=== PATIENT | female | born 1965 | race Caucasian/White ===

== ENCOUNTER 2018-01-15 09:15 | Day surgery (SDC) | payer OTHER ==
[2018-01-11 12:04] VITALS: BMI 56.3
[2018-01-15] MEDS ORDERED: ONDANSETRON 4 MG/2 ML VIAL ONE ×2 (10:43→10:57)
[2018-01-15] MEDS ORDERED: KETOROLAC TROMETHAMINE 30 MG/1 ML VIAL ONE (10:43)
[2018-01-15] MEDS ORDERED: ceFAZolin SODIUM 1 GM VIAL ONE (10:43)
[2018-01-15] MEDS ORDERED: PROPOFOL 20 ML ONE ×2 (10:45)
[2018-01-15] MEDS ORDERED: DEXAMETHASONE SOD PHOSPHATE 4 MG/1 ML VIAL ONE (10:49)
[2018-01-15] MEDS ORDERED: MIDAZOLAM HCL 2 MG/2 ML SINGLE DOSE VIAL ONE ×2 (10:49)
[2018-01-15] MEDS ORDERED: SEVOFLURANE 250 ML BTL ONE (10:53)
[2018-01-15] MEDS ORDERED: BUPIVACAINE HCL/PF 2.5 MG/ML - 30 ML VIAL IJ ONE (11:07)
[2018-01-15] MEDS ORDERED: ONDANSETRON 4 MG/2 ML VIAL IVPUSH PRN (12:35)
[2018-01-15] MEDS ORDERED: oxyCODONE HCL 5 MG TABLET PO PRN (12:35)
--- NOTE | 2018-01-15 13:35 | OP ---
DATE OF OPERATION: 01/15/2018 LOCATION: [facility]. PREOPERATIVE DIAGNOSES: 1. Left knee medial lateral meniscal tear. 2. Left knee cartilage injury. 3. Left knee synovitis. POSTOPERATIVE DIAGNOSES: 1. Left knee medial lateral meniscal tear. 2. Left knee cartilage injury. 3. Left knee synovitis. PROCEDURE: 1. Left knee arthroscopy, partial meniscectomy, medial lateral meniscus. CPT code 64981. 2. Left knee arthroscopy with chondroplasty and vasoplasty. CPT code 34084. 3. Left knee arthroscopy with synovectomy. CPT code 39856. SURGEON: Sal Galvin MD THIRD COOK: DINESH Calix ANESTHESIA: ANESTHESIOLOGIST: FINDINGS: 1. Medial meniscus body and posterior horn tear. 2. Lateral meniscus posterior horn and anterior horn area. 3. Synovitis patellofemoral and mediolateral notch area. 4. Grade 2-3 cartilage change medial femoral condyle. 5. ACL and PCL intact. 6. Diffuse grade 2-3 cartilage injury lateral joint line. 7. Grade 2-3 cartilage change in patella and grade 2-4 changes in patellofemoral trochlea. 8. Large medial placoid adhesions to medial patellofemoral trochlea. PROCEDURE: Informed consent was obtained. The patient came to the operating room, where the lower extremity was prepped and draped in a sterile fashion. A tourniquet was placed on the upper thigh, but not inflated. Using standard arthroscopic technique, a lateral incision and portal was made to allow for introduction of the camera into the suprapatellar bursa. This was then taken to the medial joint line, where under direct visualization, a medial incision and portal was made. Excessive synovium noted in the medial, lateral and patellofemoral and notch area was removed by an upbiter, shaver and Bovie cautery. This was found to bring in inflammatory tissue into the joint surface, a source of pain and dysfunction. Probing of the medial and lateral meniscus found tears, as described in the findings. These were removed with the upbiter and shaver and taken back to a stable rim. Grade 2 to 3 degenerative changes were treated with a chondroplasty, removing all flaking surfaces with low-setting Bovie along the periphery to prevent further flaking. Grade 4 changes, as noted, were treated with an abrasoplasty, creating a bleeding surface at the bone/cartilage interface. Aggressive debridement with shaver/danny created bleeding surface. Mirco fracture also done when indicated in findings. All areas of the knee were once again reexamined. The knee was then drained and a single suture was placed in all portals. A sterile dressing was placed and the patient was transferred to the recovery room without complication. SAL GALVIN M.D. [id number]
[2018-01-15] MEDS ORDERED: ACETAMINOPHEN 500 MG TABLET (FP) PO ONE (14:16)
[2018-01-15 15:26] VITALS: BP 139/80; PULSE 76; TEMP 98.2
--- NOTE | 2018-01-20 16:26 | PATH ---
Surgical Pathology Report Patient Name: YIMI OLIVAS [facility]. Rec. #: [id number] /Age/Gender: 1965 (Age: 52) / F Account: [id number] Location: [facility] AMBULATORY Taken: 01/15/2018 Received: 01/15/2018 Reported: 01/20/2018 Physicians: Sal Graham M.D. Specimen(s) Received LEFT KNEE SHAVINGS Clinical History Tear of left medial meniscus Final Diagnosis KNEE, LEFT, ARTHROSCOPIC SHAVINGS: CARTILAGE AND FIBROSYNOVIAL TISSUE. Electronically Signed Kristin Arzate M.D. Gross Description Received in formalin, labeled "left knee shavings," is a 4.5 x 4.0 x 0.4 cm. aggregate of boles-yellow soft tissue fragments admixed with blood clot. A marketing sales representative portion is submitted in one cassette. /01/18/201801/18/2018
== END 2018-01-15 15:27 | disposition home or self-care (01) ==
LOC: FASU 09:15
PROVIDERS: ATTEND Orthopaedic Surgery
PROC: 0SBD4ZZ Excision of Left Knee Joint, Percutaneous Endoscopic Approach (ICD-10-PCS; 2018-01-15)
PROC: 0SBD4ZZ Excision of Left Knee Joint, Percutaneous Endoscopic Approach (ICD-10-PCS; principal; 2018-01-15 11:40)
DX: S83.242A Other tear of medial meniscus, current injury, left knee, initial encounter (principal); S83.282A Other tear of lateral meniscus, current injury, left knee, initial encounter; S83.8X2A Sprain of other specified parts of left knee, initial encounter; M65.862 Other synovitis and tenosynovitis, left lower leg; X58.XXXA Exposure to other specified factors, initial encounter; Y93.9 Activity, unspecified; Y92.9 Unspecified place or not applicable
CPT/HCPCS: 84703; 88304-TC; 94760

== ENCOUNTER → 2020-01-27 | Day surgery (SDC) | payer OTHER ==
[2020-01-23 13:00] VITALS: BMI 56.3
[~2020-01-27] MED LIST: BUPIVACAINE HCL/PF 2.5 MG/ML - 30 ML VIAL IJ ONE; DEXAMETHASONE SOD PHOSPHATE 4 MG/1 ML VIAL ONE; KETOROLAC TROMETHAMINE 30 MG/1 ML VIAL ONE; LABETALOL HCL 5 MG/1 ML (100MG/20 ML VIAL) ONE; LACTATED RINGERS SOLUTION 1,000 ML IV SCH; LIDOCAINE HCL/PF 2% SDV 5ML VIAL ONE; MIDAZOLAM HCL 2 MG/2 ML SINGLE DOSE VIAL ONE; ONDANSETRON 4 MG/2 ML VIAL IVPUSH PRN; ONDANSETRON 4 MG/2 ML VIAL ONE; ceFAZolin SODIUM 1 GM VIAL ONE; oxyCODONE HCL 5 MG TABLET PO PRN
--- NOTE | 2020-01-27 14:00 | OP ---
DATE OF OPERATION: 01/27/2020 PREOPERATIVE DIAGNOSES: 1. Right knee medial and lateral meniscal tear. 2. Right knee cartilage injury, right knee synovitis. POSTOPERATIVE DIAGNOSES: 1. Right knee medial and lateral meniscal tear. 2. Right knee cartilage injury, right knee synovitis. PROCEDURE: 1. Right knee arthroscopy, partial meniscectomy, medial and lateral meniscus. CPT code 32210. 2. Right knee arthroscopy with chondroplasty and abrasion plasty. CPT code 70698. 3. Right knee arthroscopy with synovectomy. CPT code 12499. SURGEON: Dr. Sal Galvin UNDERGROUND BOLTING MACHINE OPERATOR: DINESH Calix FINDINGS: 1. Medial meniscus body to posterior horn tear, inner third. 2. Lateral meniscus anterior 20%. 3. Synovitis patellofemoral medial, lateral notch area with large medial plica adhesion to the anterior medial femoral condyle. 4. Diffuse grade 2-3 cartilage injury, 60% of medial femoral condyle, 40% of medial tibial plateau. 5. ACL and PCL intact. 6. Diffuse grade 2-3 cartilage injury lateral femoral condyle, 50% of condyle, 50% of lateral tibial plateau. 7. Large medial plica with adhesions to the anterior and medial portion of the patellofemoral trochlea and medial femoral condyle with central grade 2-4 changes central third patella and patellofemoral trochlea. PROCEDURE: Informed consent was obtained. The patient came to the operating room, where the lower extremity was prepped and draped in a sterile fashion. A tourniquet was placed on the upper thigh, but not inflated. Using standard arthroscopic technique, a lateral incision and portal was made to allow for introduction of the camera into the suprapatellar bursa. This was then taken to the medial joint line, where under direct visualization, a medial incision and portal was made. Excessive synovium noted in the medial, lateral and patellofemoral and notch area was removed by an upbiter, shaver and Bovie cautery. This was found to bring in inflammatory tissue into the joint surface, a source of pain and dysfunction. Probing of the medial and lateral meniscus found tears, as described in the findings. These were removed with the upbiter and shaver and taken back to a stable rim. Grade 2 to 3 degenerative changes were treated with a chondroplasty, removing all flaking surfaces with low-setting Bovie along the periphery to prevent further flaking. Grade 4 changes, as noted, were treated with an abrasoplasty, creating a bleeding surface at the bone/cartilage interface. Aggressive debridement with shaver/danny created bleeding surface. Micro fracture also done when indicated in findings. All areas of the knee were once again reexamined. The knee was then drained and a single suture was placed in all portals. A sterile dressing was placed and the patient was transferred to the recovery room without complication. The PA listed above was present and assisted at surgery. Their presence was absolutely medically necessary for the completion of the procedure. They helped hold the arthroscopy, pass instruments (and implants when indicated) and the procedure could not have been completed without their assistance. SAL GALVIN M.D. [id number]
[2020-01-27 14:32] VITALS: PULSE 78
[2020-01-27 15:47] VITALS: BP 144/84; TEMP 97.9
--- NOTE | 2020-02-01 14:50 | PATH ---
Surgical Pathology Report Patient Name: YMII OLIVAS Med. Rec. #: [id number] /Age/Gender: 1965 (Age: 54) / F Account: [id number] Location: [facility] AMBULATORY Taken: 01/27/2020 Received: 01/27/2020 Reported: 02/01/2020 Physicians: Sal Graham M.D. Specimen(s) Received RIGHT KNEE SHAVINGS Clinical History Right knee internal derangement Final Diagnosis RIGHT KNEE SHAVINGS: FRAGMENTS OF CARTILAGE AND FIBROSYNOVIAL TISSUE WITH FOCAL REACTIVE CHANGE. Electronically Signed Roger Lai M.D. Gross Description Received in formalin, labeled "shavings right knee," is a 5.0 x 4.6 x 0.3 cm. aggregate of boles-yellow soft tissue fragments. A lead generation representative portion is submitted in one cassette. /[facility]/31/[facility]
== END | disposition home or self-care (01) ==
LOC: FASU 08:56
PROVIDERS: ATTEND Orthopaedic Surgery
PROC: 0SBC4ZZ Excision of Right Knee Joint, Percutaneous Endoscopic Approach (ICD-10-PCS; 2020-01-27)
PROC: 0SBC4ZZ Excision of Right Knee Joint, Percutaneous Endoscopic Approach (ICD-10-PCS; 2020-01-27)
PROC: 0SBC4ZZ Excision of Right Knee Joint, Percutaneous Endoscopic Approach (ICD-10-PCS; principal; 2020-01-27 10:38)
DX: S83.241A Other tear of medial meniscus, current injury, right knee, initial encounter (principal); S83.281A Other tear of lateral meniscus, current injury, right knee, initial encounter; S83.8X1A Sprain of other specified parts of right knee, initial encounter; M65.861 Other synovitis and tenosynovitis, right lower leg; X58.XXXA Exposure to other specified factors, initial encounter; Y93.9 Activity, unspecified; Y92.9 Unspecified place or not applicable
CPT/HCPCS: 88304-TC; 94760